=== PATIENT | female | born 1945 | race Two or more races ===

== ENCOUNTER 2017-08-04 09:29 | Outpatient (CLI) | payer MEDICARE, MEDICAID ==
[~2017-08-04] VITALS: Ht 157.5 cm; Wt 69.3 kg
[2017-08-04] MEDS ORDERED: SODIUM CHLORIDE 0.9% 1,000 ML IV SCH (09:51)
[2017-08-04] MEDS ORDERED: BUPIVACAINE/PF 0.5% ONE (09:51)
[2017-08-04] MEDS ORDERED: HEPARIN 1,000 UNITS/ML, 10ML ONE (09:52)
[2017-08-04] MEDS ORDERED: THROMBIN 5,000 UNIT VIAL TP ONE (09:52)
[2017-08-04] MEDS ORDERED: PROTAMINE SULFATE 10 MG/ML, 5ML ONE (09:52)
[2017-08-04] MEDS ORDERED: CARV12.52 PO (10:12)
[2017-08-04] MEDS ORDERED: MULT-6 PO (10:12)
[2017-08-04] MEDS ORDERED: FURO80TA3 PO (10:12)
[2017-08-04] MEDS ORDERED: ASPI-621 PO (10:12)
[2017-08-04] MEDS ORDERED: PLEASE ENTER HEIGHT AND WEIGHT MC SCH (10:30)
[2017-08-04] MEDS ORDERED: FENTANYL PF 250 MCG/5ML ONE (10:36)
[2017-08-04] MEDS ORDERED: MIDAZOLAM 1 MG/ML, 2ML ONE (10:36)
[2017-08-04 10:41] VITALS: BP 102/67
== END 2017-08-04 10:00 ==
LOC: OUT 09:29
PROVIDERS: ATTEND Surgery Vascular Surgery
DX: N18.6 End stage renal disease (principal); Z53.9 Procedure and treatment not carried out, unspecified reason
CPT/HCPCS: 36415; 80047; 82962; 93005; J7030; J1644; J2250; J2720; J3010; J3490

== ENCOUNTER 2017-08-18 06:11 | Day surgery (SDC) | payer MEDICARE, MEDICAID ==
[~2017-08-18] VITALS: Ht 157.5 cm; Wt 67.0 kg
[~2017-08-18 06:11] MED LIST: ASPI-621 PO; CARV12.52 PO; FURO80TA3 PO; MULT-6 PO
[2017-08-18] MEDS ORDERED: HEPARIN 1,000 UNITS/ML, 30ML ONE (06:21)
[2017-08-18] MEDS ORDERED: PROTAMINE SULFATE 10 MG/ML, 5ML ONE (06:21)
[2017-08-18] MEDS ORDERED: SODIUM CHLORIDE 0.9% 1,000 ML IV SCH (06:41)
[2017-08-18 06:43] VITALS: BP 171/94
[2017-08-18] MEDS ORDERED: ACETAMINOPHEN 500 MG TABLET PO ONE (07:30)
[2017-08-18] MEDS ORDERED: ONDANSETRON ODT 8 MG PO ONE (07:30)
[2017-08-18 07:35] LABS: ANION GAP 11 mmol/L (5-15); CALCIUM 8.5 mg/dL (8.5-10.1); CHLORIDE 99 mmol/L (98-107); CREATININE 7.29 mg/dL (0.55-1.02)
[2017-08-18] MEDS ORDERED: ONDANSETRON 2MG/ML, 2ML ONE (07:43)
[2017-08-18] MEDS ORDERED: DEXAMETHASONE 4 MG/ML, 1ML ONE (07:43)
[2017-08-18] MEDS ORDERED: CEFAZOLIN 1,000 MG ONE (07:43)
[2017-08-18] MEDS ORDERED: FENTANYL PF 100 MCG/2ML ONE ×2 (07:43→11:05)
[2017-08-18] MEDS ORDERED: PROPOFOL 10 MG/ML, 20ML ONE (07:43)
[2017-08-18] MEDS ORDERED: LIDOCAINE 1%, 20ML ONE (08:50)
[2017-08-18] MEDS ORDERED: ALBUTEROL/IPRATROPIUM 2.5MG/0.5MG, 3 ML NPPB PRN (10:00)
[2017-08-18] MEDS ORDERED: DIAZEPAM 5 MG/ML, 2ML IVPush PRN (10:00)
[2017-08-18] MEDS ORDERED: ONDANSETRON 2MG/ML, 2ML IVPush PRN (10:00)
[2017-08-18] MEDS ORDERED: PROMETHAZINE 12.5 MG SUPP PR PRN (10:00)
[2017-08-18] MEDS ORDERED: PROMETHAZINE 25 MG/ML, 1ML IV PRN (10:00)
[2017-08-18] MEDS ORDERED: OXYcodone 5 MG/5 ML ORAL.SOL UDC PO PRN (10:00)
[2017-08-18] MEDS ORDERED: morphine SULFATE 10 MG/ML, 1ML IV PRN (10:00)
[2017-08-18] MEDS ORDERED: LABETALOL 5MG/ML, 20ML IV PRN (10:00)
[2017-08-18] MEDS ORDERED: hydrALAzine 20 MG/ML, 1ML IV PRN (10:00)
[2017-08-18] MEDS ORDERED: MIDAZOLAM 1 MG/ML, 2ML IV PRN (10:00)
[2017-08-18] MEDS ORDERED: THROMBIN 5,000 UNIT VIAL TP ONE (10:05)
[2017-08-18] MEDS ORDERED: OXYcodone 5 MG/5 ML ORAL.SOL UDC ONE (10:56)
[2017-08-18] MEDS ORDERED: CARVEDILOL 12.5 MG TABLET PO ONE (11:00)
[2017-08-18] MEDS ORDERED: hydrALAzine 20 MG/ML, 1ML ONE (11:05)
[2017-08-18] MEDS: FENTANYL PF 100 MCG/2ML IV PRN ×2 (11:08→11:15)
[2017-08-18] MEDS ORDERED: PROMETHAZINE 25 MG/ML, 1ML ONE (11:26)
== END 2017-08-18 13:30 ==
LOC: OUT 06:11
PROVIDERS: ATTEND Surgery Vascular Surgery
DX: I12.9 Hypertensive chronic kidney disease with stage 1 through stage 4 chronic kidney disease, or unspecified chronic kidney disease (principal); E11.22 Type 2 diabetes mellitus with diabetic chronic kidney disease; N18.9 Chronic kidney disease, unspecified
CPT/HCPCS: 36415; 36825; 80048; C1768; J0360; J0690; J1100; J1644; J2550; J2704; J2720; J3010; J3490; J7030; Q0162; J2405